=== PATIENT | female | born 1965 | race Caucasian/White ===

== ENCOUNTER 2019-02-09 08:05 | Emergency (ER) | payer OTHER ==
[~2019-02-09] VITALS: Ht 160 cm; Wt 59.4 kg
[2019-02-09 08:23] VITALS: Ht 160 cm; Wt 59.4 kg
[2019-02-09 09:39] VITALS: BP 122/65
== END 2019-02-09 09:39 | disposition home or self-care (01) ==
LOC: ED 08:05
DX: F41.9 Anxiety disorder, unspecified (principal); F43.9 Reaction to severe stress, unspecified; Z90.710 Acquired absence of both cervix and uterus